=== PATIENT | male | born 1955 | race Caucasian/White ===

== ENCOUNTER 2018-06-02 09:55 | Emergency (ER) | payer OTHER ==
--- NOTE | 2018-06-02 10:14 | EDPHY ---
General Time Seen by Provider: 06/02/18 10:14 Narrative: CLINICAL IMPRESSION: Anxiety, palpitations, UTI with hematuria ASSESSMENT/PLAN: Patient is a 63 year old male with a significant medical history of coronary artery disease who presents to the emergency department with complaints of palpitations, anxiety, panic attacks and urinary symptoms to include dysuria, hematuria, increased frequency and decreased urinary output that have been ongoing escalating since April. Patient is afebrile, he is anxious however not toxic-appearing. Patient was placed on a playground monitor which revealed sinus tachycardia, no evidence of dysrhythmia or ischemia. Troponin 0. CBC with no evidence of leukocytosis, magnesium normal at 2.0, TSH within normal limits. There was no evidence of ACS, dysrhythmia, anemia, fever, medication side effect, toxidrome, thyrotoxicosis, dehydration, or hypoglycemia. Query anxiety induced palpitations s she describes episodes while he is feeling extremely anxious. Patient also found to have hematuria and bacteriuria, will conservatively treat with Keflex however have discussed the importance of close follow-up with Urology. Urine sent for culture. On repeat examination and prior to discharge the patient is well-appearing, he is very reassured by his findings. He understands the importance of establishing care with a primary care provider to assist in his ongoing anxiety as well as follow-up with Urology. His heart rate normalized to 93 on my examination, he still was found to have an elevated blood pressure however there was no evidence of hypertensive urgency or emergency. He states that this is not unusual for him and he will follow up with his PCP. Conservative return precautions discussed- patient will return for significantly worsening or uncontrolled anxiety, chest pain, fever, shortness of breath, abdominal pain, urinary retention or for any other concerning symptom. The patient verbalizes understanding and he is in agreement with this plan. DIFFERENTIAL DX: Differential diagnosis including but not limited to ACS, infectious process, electrolyte abnormality, thyrotoxicosis, dehydration, hypoglycemia, BPH, UTI, pyelonephritis, prostatitis, cancer ED COURSE: 1036: Discussed with Dr. Ramirez 1044: ECG reveals sinus tachycardia at a rate of 115. Also reviewed by Dr. Ramirez. CHIEF COMPLAINT: Anxiety, dysuria, hematuria, increased frequency and decreased urinary output HPI: Patient is a 63-year-old male with significant history of coronary artery disease status post stent placement who presents to the emergency department with escalating anxiety, panic attacks, palpitations, dysuria, hematuria, increased frequency and decreased urinary output over the last several months. Patient reports around April 29 he started to experience some dysuria and hematuria as well as generalized anxiety. He reports episode of feeling palpitations and having chest discomfort with no formal medical evaluation. Several weeks ago he was seen and evaluated at the clinic as he does not have a primary care provider, was diagnosed with presumed prostatitis and given ciprofloxacin which he decided not to take secondary to possible medication side effects. Patient endorses that he changed his diet and his symptoms went away completely for approximately 3 weeks however 2 weeks ago started to come back. He endorses significant anxiety mostly at night time, he wakes up in a panic with the feeling of palpitations and chest discomfort. He is also having intermittent dysuria, hematuria, decreased stream and increased feeling of needing to go to the bathroom. Patient denies any recent fever, upper respiratory symptoms or cough. He has had no abdominal pain. He denies any testicular pain or swelling and has had no pain in his perineal area. Denies any change in bowel habits. PMH: Coronary artery disease with stent placement Family History: Noncontributory Social History: Denies cigarette smoking, remote alcohol use, occasional marijuana REVIEW OF SYSTEMS: All other systems negative Constitutional: No fever, no chills, appetite change. Eyes: No discharge, vision change ENT: No sore throat, congestion, ear pain. Cardiovascular: Chest discomfort, palpitations. Respiratory: No cough, no shortness of breath. Gastrointestinal: No abdominal pain, no vomiting, diarrhea. Genitourinary: Hematuria, dysuria, decreased urinary output. Musculoskeletal: No back pain, joint swelling, joint pain, myalgias. Skin: No rashes, color change. Neurological: No headache, dizziness, weakness. PHYSICAL EXAM: General Appearance: Very anxious however not toxic-appearing. HENT: Normocephalic, atraumatic. Bilateral external ears are normal. Bilateral tympanic membranes are normal with pearly rhoades reflex. Nares are clear, mucosa is pink. Oropharynx is clear, uvula is midline. There is no tonsillar enlargement or exudate. The dentition is normal. Eyes: PERRLA, no acute vision change, nystagmus, swelling, discharge, pain or photosensitivity. Conjunctiva pink, no pallor or injection Neck: Supple, nontender, no lymphadenopathy, no midline pain, FROM, no meningismus. Respiratory: There are no retractions, lungs are clear to auscultation. Cardiac: Tachycardic, no murmurs or gallops. Gastrointestinal: Abdomen is soft, bowel sounds normal, no masses/hernia, no rigidity, guarding or focal peritoneal findings. I am unable to elicit any tenderness to palpation in all quadrants. Neurological: Alert and oriented x 3, CN 2-12 grossly intact, normal gait no ataxia, DTR's intact, normal sensation and strength Skin: Warm, dry, no rashes, no nodules on palpation. Musculoskeletal: Extremities are symmetrical, full range of motion, no tenderness, deformity, swelling, or erythema. Psychiatric: Patient is oriented X 3, there is no agitation. MEDICAL DECISION MAKING: Patient was seen independently. Secondary supervising physician at time of evaluation was Dr. Ramirez, he did not evaluate this patient. Diagnosis: Anxiety, palpitations, UTI. New, requires workup Summary: See Assessment and Plan for summary of ED visit Clinical lab tests: ordered / reviewed. Independent visualization of images, tracing, or specimens: Yes. Decision to obtain medical records or history from someone other than the patient: Yes, daughter Review / Summarize previous medical records: None available Discussed patient with another provider: Yes, Dr. Ramirez Patient Progress: Stable, discharge. - Diagnostics Imaging Results: Imaging Impressions Chest X-Ray 06/02/18 10:29 Impression: Negative chest. - History Smoking Status: Never smoked - Objective Vital Signs: Initial Vital Signs Temperature (C) 36.6 C 06/02/18 09:57 Heart Rate 134 H 06/02/18 09:57 Respiratory Rate 20 06/02/18 09:57 Blood Pressure 185/126 H 06/02/18 09:57 O2 Sat (%) 97 06/02/18 09:57 O2 Delivery Mode Room Air Allergies/Adverse Reactions: No Known Allergies Allergy (Unverified 06/02/18 11:10) Home Medications: Medication Instructions Recorded Cephalexin [Keflex (*)] 500 mg PO Q6H 14 Days cap 06/02/18 Laboratory Results: Laboratory Results 06/02/18 10:40 06/02/18 10:40 06/02/18 06/02/18 06/02/18 10:47 10:40 10:40 WBC 8.51 10^3/uL 10^3/uL (3.80-9.50) RBC 6.07 10^6/uL 10^6/uL (4.40-6.38) Hgb 18.2 g/dL H g/dL (13.7-17.5) Hct 53.5 % H % (40.0-51.0) MCV 88.1 fL fL (81.5-99.8) MCH 30.0 pg pg (27.9-34.1) MCHC 34.0 g/dL g/dL (32.4-36.7) RDW 13.1 % % (11.5-15.2) Plt Count 273 10^3/uL 10^3/uL (150-400) MPV 9.2 fL fL (8.7-11.7) Neut % (Auto) 73.0 % % (39.3-74.2) Lymph % (Auto) 15.7 % % (15.0-45.0) [place] % (Auto) 10.5 % % (4.5-13.0) Eos % (Auto) 0.2 % L % (0.6-7.6) Baso % (Auto) 0.4 % % (0.3-1.7) Nucleat RBC Rel Count 0.0 % % (0.0-0.2) Absolute Neuts (auto) 6.21 10^3/uL 10^3/uL (1.70-6.50) Absolute Lymphs (auto) 1.34 10^3/uL 10^3/uL (1.00-3.00) Absolute Monos (auto) 0.89 10^3/uL H 10^3/uL (0.30-0.80) Absolute Eos (auto) 0.02 10^3/uL L 10^3/uL (0.03-0.40) Absolute Basos (auto) 0.03 10^3/uL 10^3/uL (0.02-0.10) Absolute Nucleated RBC 0.00 10^3/uL 10^3/uL (0-0.01) Immature Gran % 0.2 % % (0.0-1.1) Immature Gran # 0.02 10^3/uL 10^3/uL (0.00-0.10) Sodium 138 mEq/L mEq/L (135-145) Potassium 4.1 mEq/L mEq/L (3.5-5.2) Chloride 107 mEq/L mEq/L (97-110) Carbon Dioxide 20 mEq/l L mEq/l (22-31) Anion Gap 11 mEq/L mEq/L (6-14) BUN 13 mg/dL mg/dL (7-23) Creatinine 0.9 mg/dL mg/dL (0.7-1.3) Estimated GFR > 60 Glucose 103 mg/dL H mg/dL (70-100) Calcium 10.0 mg/dL mg/dL (8.5-10.4) Magnesium 2.0 mg/dL mg/dL (1.6-2.3) Total Bilirubin 0.8 mg/dL mg/dL (0.1-1.4) AST 29 IU/L IU/L (17-59) ALT 34 IU/L IU/L (21-72) Alkaline Phosphatase 97 IU/L IU/L (38-126) POC Troponin I 0.00 ng/mL ng/mL (0.00-0.08) Total Protein 8.1 g/dL g/dL (6.3-8.2) Albumin 4.8 g/dL g/dL (3.5-5.0) TSH 1.600 uIU/mL uIU/mL (0.465-4.680) Urine Color Urine Appearance Urine pH Ur Specific [place] Urine Protein Urine Ketones Urine Blood Urine Nitrate Urine Bilirubin Urine Urobilinogen Ur Leukocyte Esterase Urine RBC Urine WBC Ur Epithelial Cells Urine Mucus Urine Glucose 06/02/18 10:10 WBC RBC Hgb Hct MCV MCH MCHC RDW Plt Count MPV Neut % (Auto) Lymph % (Auto) [place] % (Auto) Eos % (Auto) Baso % (Auto) Nucleat RBC Rel Count Absolute Neuts (auto) Absolute Lymphs (auto) Absolute Monos (auto) Absolute Eos (auto) Absolute Basos (auto) Absolute Nucleated RBC Immature Gran % Immature Gran # Sodium Potassium Chloride Carbon Dioxide Anion Gap BUN Creatinine Estimated GFR Glucose Calcium Magnesium Total Bilirubin AST ALT Alkaline Phosphatase POC Troponin I Total Protein Albumin TSH Urine Color YELLOW Urine Appearance CLEAR Urine pH 5.0 (5.0-7.5) Ur Specific [place] 1.008 (1.002-1.030) Urine Protein NEGATIVE (NEGATIVE) Urine Ketones NEGATIVE (NEGATIVE) Urine Blood 3+ H (NEGATIVE) Urine Nitrate NEGATIVE (NEGATIVE) Urine Bilirubin NEGATIVE (NEGATIVE) Urine Urobilinogen NEGATIVE EU EU (0.2-1.0) Ur Leukocyte Esterase NEGATIVE (NEGATIVE) Urine RBC 25-50 /hpf H /hpf (0-3) Urine WBC 5-10 /hpf H /hpf (0-3) Ur Epithelial Cells TRACE /lpf /lpf (NONE-1+) Urine Mucus TRACE /lpf /lpf (NONE-1+) Urine Glucose NEGATIVE (NEGATIVE) Medications Given: Discontinued Medications Sodium Chloride (Ns) 1,000 mls @ 0 mls/hr IV ONCE ONE PRN Reason: Wide Open Stop: 06/02/18 10:31 Last Admin: 06/02/18 10:54 Dose: 1,000 mls Lorazepam (Ativan Injection) 1 mg IVP EDNOW ONE Stop: 06/02/18 10:31 Last Admin: 06/02/18 10:54 Dose: 1 mg Point of Care Test Results: Chemistry 06/02/18 10:47 POC Troponin I 0.00 ng/mL ng/mL (0.00-0.08) Departure - Departure Disposition: Home, Routine, Self-Care Clinical Impression: Bacteriuria, Anxiety Condition: Good Instructions: Anxiety (ED) Additional Instructions: DISCHARGE INSTRUCTIONS FROM YOUR DOCTOR Thank you for visiting our emergency department today. Please keep in mind that discharge from the emergency department does not mean that there is nothing wrong - it simply means that we have not identified an emergency condition that requires further evaluation or treatment in the hospital. You should always plan to follow up with primary care for re-evaluation of your condition in the next 2-3 days. If you have been referred to a specialist, please call as soon as possible ( today or tomorrow) to schedule your follow up appointment at the appropriate time. Rest, healthy/regular sleep schedule, push fluids, healthy diet, regular exercise. Attempt to reduce stress. Pursue pleasurable, healthy activities. Surround yourself with loving, supportive, healthy friends and family. Stop smoking as soon as possible. Avoid drugs and alcohol. Re-establish counseling to help work through issues and develop good coping and behavioral strategies for stress reduction and symptom control. Establish care with a primary care physician. Urinate regularly. Urinate after intercourse if sexually active. Keflex antibiotic as prescribed every 12 hours. You received your first dose here today. Consider over the counter probiotics to help prevent antibiotic associated diarrhea. As discussed, a urine culture is pending at the lab. Your antibiotic may need to be changed. If it does, you will be contacted in the next 3-5 days by phone. Be sure we have a working phone number. Schedule a follow-up appointment with your primary care physician in the next 1- 2 days for re-evaluation. Bring a copy of your test results with you to that appointment. Return for increased or unmanageable pain, development of abdominal pain, groin pain, pelvic pain, back pain, flank pain, fever, chills, recurrent vomiting, vomiting blood or coffee grounds, diarrhea, constipation, bloody stool, black tarry stools, burning or pain with urination, bloody urine, inability to urinate , decreased urine output or other signs of dehydration, development of fever, chills, dizziness, weakness, fainting, difficulty breathing or swallowing, chest pain, coughing, coughing up blood, ankle swelling, or for any other new, worsening or worrisome symptoms. Return for increased or unmanageable anxiety, severe depression, thoughts or plans to hurt yourself or someone else, for chest pain, shortness of breath, dizziness, fainting, rapid or irregular heart beat, sweating, vomiting, abdominal pain, back pain, tremor, seizure, mental status changes, or for any other new, worsening or worrisome symptoms. People present with illnesses and injuries in different ways, and it is always possible that we have missed something. You may always return for re-evaluation if symptoms worsen or if they are not improving or if you develop new/different symptoms. Again, thank you for choosing our emergency department. We hope that you feel better. Referrals: Gallo Moura MD [Medical Doctor] - As per Instructions (Please establish care with a primary care provider, I would like you to be seen 1st thing next week.) Rhett Stearns MD [Medical Doctor] - 2-3 days, call for appt. Prescriptions: Cephalexin [Keflex (*)] 500 mg PO Q6H 14 Days cap
[2018-06-02] MEDS ORDERED: LORazepam 2 MG/ML INJ IVP ONE (10:30)
[2018-06-02] MEDS ORDERED: NS 1,000 ML IV ONE (10:30)
[2018-06-02 10:52] LABS: PLATELET COUNT 273 10^3/uL (150-400)
--- NOTE | 2018-06-02 11:01 | CPEKG ---
Test Reason : OPEN Blood Pressure : / mmHG Vent. Rate : 115 BPM Atrial Rate : 125 BPM P-R Int : 178 ms QRS Dur : 085 ms QT Int : 305 ms P-R-T Axes : 044 046 040 degrees QTc Int : 422 ms Sinus tachycardia with irregular rate Confirmed by Shelton Fernández ([id number]) on 06/02/2018 11:01:22 AM Referred By: SHELTON FERNÁNDEZ Confirmed By:Shelton Fernández
[2018-06-02] MEDS ORDERED: CEPHALEXIN 500 MG CAP PO ONE ×2 (12:47)
[2018-06-02 12:51] VITALS: BP 198/130
== END 2018-06-02 12:49 | disposition home or self-care (01) ==
DX: R82.71 Bacteriuria (principal); F41.9 Anxiety disorder, unspecified; E86.9 Volume depletion, unspecified
CPT/HCPCS: 84484-ER; 96374; J2060